=== PATIENT | female | born 1935 | race Caucasian/White ===

== ENCOUNTER 2020-01-29 10:47 | Emergency (ER) | payer MEDICARE ==
[~2020-01-29] VITALS: Ht 160 cm; Wt 64.0 kg
[2020-01-29 11:24] VITALS: BP 145/68
[2020-01-29] MEDS ORDERED: COROTSUS RIGHT EAR (11:41)
== END 2020-01-29 11:48 | disposition home or self-care (01) ==
LOC: ER 10:47
DX: T16.1XXA Foreign body in right ear, initial encounter (principal); H60.91 Unspecified otitis externa, right ear; Z79.899 Other long term (current) drug therapy
CPT/HCPCS: 69200; 99284